=== PATIENT | female | born 1990 | race Caucasian/White ===

== ENCOUNTER → 2018-11-29 13:49 | Outpatient (CLI) | payer OTHER, SELFPAY | DX: Z23 Encounter for immunization (principal) | CPT/HCPCS: 90471; 90686 ==

== ENCOUNTER → 2021-05-06 11:41 | Outpatient (CLI) | payer OTHER, SELFPAY ==
--- NOTE | 2021-05-06 | DI.US.S_ITS ---
PROCEDURE: US OB >= 14 WEEKS FETUS INDICATIONS: 20 WEEK ANATOMY SCAN. OUTSIDE/PRIOR DATING DATA: Last menstrual period (LMP): 12/10/2020 LMP-based estimated date of delivery (PAVEL): 09/16/2021. First dating scan (date and location): 05/06/2021. Estimated date of delivery (PAVEL) from first dating scan: 09/23/2021. The calculations are made using the ultrasound PAVEL of 09/23/2021. TECHNIQUE: Real-time scanning was performed of the fetus, with image documentation and biometric measurements. COMPARISON: None. FINDINGS: General: A single living intrauterine gestation is present. Presentation: Vertex. Placenta: Placental position is anterior , without previa. Amniotic fluid index: 14.3 cm, normal range is 5-24 cm. heart rate: 152 beats per minute. Maternal cervical canal: 3.6 cm long. Normal lower limit is 2.5 cm. biometrics: Biparietal diameter: 20 weeks 6 days Head circumference: 20 weeks 2 days Abdominal circumference: 19 weeks 2 days Femur length: 19 weeks 3 days Clinically estimated gestational age: Not available. Composite gestational age from present scan: 20 weeks Estimated weight and percentile: 297 g Anatomic survey: Neuro: Ventricles are non-dilated at less than 10 mm. Cisterna magna is normal at 3-11 mm. Cerebellum is normal in size and morphology. Nuchal skin fold: Normal at less than 6 mm between 14-21 weeks gestational age. Face: Nose and lips, facial profile are normal. Spine: No evidence for spina bifida. Heart: 4-chambered heart is present, with normal ventricular outflow tracts. Diaphragm: Diaphragm is intact. Stomach: Left-sided stomach is present. Kidneys: No hydronephrosis. Normal is less than 5 mm in 2nd trimester, less than 7 mm in 3rd trimester. Cord: 3-vessel cord has orthotopic insertion. Bladder: Normal in size. Extremities: All 4 extremities identified. IMPRESSION: 1. 20 week 0 day single living IUP corresponding to ultrasound PAVEL of 09/23/2021. 2. Normal anatomic survey. We strive to produce accurate, complete, and clear reports of imaging services. To assist us in improving patient care, this report was composed using standard report templates and voice recognition software. Therefore, it may contain abnormal punctuation, insertions and/or omissions. Occasional wrong-word or sound-alike substitutions may occur. Though we review the report and make efforts to correct it, we do recommend that the report be read carefully in proper context to recognize any text inaccuracies. Dictated by: Thompson ALVARADO Interpreted: Toya Horton MD on 05/06/2021 at 13:23 Approved by: Zeferino Bucio M.D. on 05/10/2021 at 14:23
== END ==
PROVIDERS: Referring Provider Nurse Practitioner Obstetrics & Gynecology; Visit Provider Nurse Practitioner Obstetrics & Gynecology
DX: Z34.92 Encounter for supervision of normal pregnancy, unspecified, second trimester (principal); Z3A.20 20 weeks gestation of pregnancy
CPT/HCPCS: 76811